=== PATIENT | male | born 1975 | race Asian ===

== ENCOUNTER 2019-03-27 16:45 | Emergency (ER) | payer OTHER ==
[~2019-03-27] VITALS: Ht 175.3 cm; Wt 63.5 kg
[2019-03-27 16:50] VITALS: BP 147/88
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
[2019-03-27] MEDS ORDERED: KETOROLAC 30 MG/ML VIAL IVP ONE (18:10)
[2019-03-27 18:57] VITALS: BP 123/69
--- NOTE | 2019-03-27 18:57 | NUR ---
Patient discharged with v/s stable. Written and verbal after care instructions given and explained. Patient alert, oriented and verbalized understanding of instructions. Ambulatory with steady gait. All questions addressed prior to discharge. ID band removed. Patient advised to follow up with PMD. Rx of IBUPROFEN AND NORCO given. Patient educated on indication of medication including possible reaction and side effects. Opportunity to ask questions provided and answered.
== END 2019-03-27 18:57 | disposition home or self-care (01) ==
LOC: MED 16:45
DX: S93.401A Sprain of unspecified ligament of right ankle, initial encounter (principal); S63.502A Unspecified sprain of left wrist, initial encounter; S23.3XXA Sprain of ligaments of thoracic spine, initial encounter; S20.219A Contusion of unspecified front wall of thorax, initial encounter; S80.212A Abrasion, left knee, initial encounter; V49.9XXA Car occupant (driver) (passenger) injured in unspecified traffic accident, initial encounter; Y93.89 Activity, other specified; Y92.86 Slaughter house as the place of occurrence of the external cause; Y99.8 Other external cause status
CPT/HCPCS: 29125; 71046; 73610; 96374; 99283; J1885